=== PATIENT | female | born 1945 | race Caucasian/White ===

== ENCOUNTER 2022-07-05 17:43 | Emergency (ER) | payer MEDICARE, OTHER ==
[~2022-07-05] VITALS: Ht 175 cm; Wt 88.0 kg
--- NOTE | 2022-07-05 17:53 | ED Chest Pain ---
General Stated Complaint: CHEST/BACK PAIN History of Present Illness Date Seen by Provider: Jul 05, 2022 Time Seen by Provider: 17:48 Initial Comments 76-year-old female presents with left lower rib/back pain has been going on for about 3 days. When you press on it it radiates around to the front. Patient reports she was Stretching her back against the wall when the pain started. She denies any fevers chills, nausea vomiting or shortness of breath. Patient was just concerned because the pain came around other chest and wanted to be evaluated. Allergies and Home Medications Patient Home Medication List Home Medication List Reviewed: Yes Review of Systems Review of Systems Constitutional: No chills, No fever Respiratory: See HPI; Denies Cough, Denies Shortness of Air Cardiovascular: No Symptoms Reported Gastrointestinal: No Symptoms Reported Genitourinary: No Symptoms Reported Musculoskeletal: see HPI Skin: no symptoms reported Psychiatric/Neurological: No Symptoms Reported Endocrine: No Symptoms Reported Physical Exam Vital Signs Vital Signs - First Documented 07/05/22 17:50 Temp 36.8 Pulse 87 Resp 16 B/P (MAP) 163/71 (101) Pulse Ox 97 O2 Delivery Room Air Capillary Refill : Height, Weight, BMI Height: '" Weight: lbs. oz. kg; BMI Method: General Appearance: No Apparent Distress, WD/WN Respiratory: Lungs Clear, Other (Mild tenderness lateral chest wall along lower ribs on left) Cardiovascular: Regular Rate, Rhythm, No Edema Extremity: Normal Capillary Refill, Normal Inspection, Normal Range of Motion Neurologic/Psychiatric: Alert, Oriented x3 Skin: Normal Color, Warm/Dry Progress/Results/Core Measures Results/Orders Lab Results Laboratory Tests Test 07/05/22 17:48 Range/Units White Blood Count 9.9 4.3-11.0 10^3/uL Red Blood Count 4.57 3.80-5.11 10^6/uL Hemoglobin 13.1 11.5-16.0 g/dL Hematocrit 41 35-52 % Mean Corpuscular Volume 89 80-99 fL Mean Corpuscular Hemoglobin 29 25-34 pg Mean Corpuscular Hemoglobin Concent 32 32-36 g/dL Red Cell Distribution Width 13.3 10.0-14.5 % Platelet Count 236 130-400 10^3/uL Mean Platelet Volume 10.2 9.0-12.2 fL Immature Granulocyte % (Auto) 0 % Neutrophils (%) (Auto) 73 42-75 % Lymphocytes (%) (Auto) 18 12-44 % Monocytes (%) (Auto) 7 0-12 % Eosinophils (%) (Auto) 2 0-10 % Basophils (%) (Auto) 0 0-10 % Neutrophils # (Auto) 7.2 1.8-7.8 10^3/uL Lymphocytes # (Auto) 1.8 1.0-4.0 10^3/uL Monocytes # (Auto) 0.7 0.0-1.0 10^3/uL Eosinophils # (Auto) 0.2 0.0-0.3 10^3/uL Basophils # (Auto) 0.0 0.0-0.1 10^3/uL Immature Granulocyte # (Auto) 0.0 0.0-0.1 10^3/uL Sodium Level 140 135-145 MMOL/L Potassium Level 3.9 3.6-5.0 MMOL/L Chloride Level 102 98-107 MMOL/L Carbon Dioxide Level 27 21-32 MMOL/L Anion Gap 11 5-14 MMOL/L Blood Urea Nitrogen 12 7-18 MG/DL Creatinine 0.64 0.60-1.30 MG/DL Estimat Glomerular Filtration Rate 93 BUN/Creatinine Ratio 19 Glucose Level 111 H 70-105 MG/DL Calcium Level 10.0 8.5-10.1 MG/DL Corrected Calcium 9.8 8.5-10.1 MG/DL Magnesium Level 2.1 1.6-2.4 MG/DL Total Bilirubin 0.4 0.1-1.0 MG/DL Aspartate Amino Transf (AST/SGOT) 18 5-34 U/L Alanine Aminotransferase (ALT/SGPT) 12 0-55 U/L Alkaline Phosphatase 191 H 40-136 U/L Troponin I < 0.30 <0.30 NG/ML Total Protein 7.4 6.4-8.2 GM/DL Albumin 4.3 3.2-4.5 GM/DL My Orders Orders - NATALIE RANGELVOR L DO Cbc With Automated Diff (07/05/22 17:54) Comprehensive Metabolic Panel (07/05/22 17:54) Magnesium (07/05/22 17:54) Troponin I Fs (07/05/22 17:54) Ekg Tracing (07/05/22 17:54) Monitor-Rhythm Ecg Trace Only (07/05/22 17:54) Ribs/Unilateral With Chest (07/05/22 17:54) Vital Signs/I&O 07/05/22 07/05/22 17:50 18:32 Temp 36.8 36.8 Pulse 87 79 Resp 16 16 B/P (MAP) 163/71 (101) 147/68 Pulse Ox 97 96 O2 Delivery Room Air Room Air Progress Progress Note : Progress Note Patient is EKG and labs show no acute findings. Patient has old rib fractures but no acute rib fractures. Patient likely does have a contusion from leaning up against the wall. Her son reports that she falls frequently due to neuropathy and will not always admit to it. Patient's physical exam shows no acute findings. She can use topical lidocaine Tylenol ibuprofen. She is stable and discharged Initial ECG Impression Date: Jul 05, 2022 Initial ECG Impression Time: 17:50 Initial ECG Rate: 89 Initial ECG Rhythm: Normal Sinus Initial ECG Intervals: LA (210) Comment NSR, first degree block, RBBB Diagnostic Imaging Diagonstic Imaging: Xray Plain Films/CT/US/NM/MRI: chest Comments Date of Exam:07/05/22 RIBS/UNILATERAL WITH CHEST INDICATION: Left rib pain EXAMINATION: Left rib series with chest 07/05/2022. FINDINGS: 4 views of the chest and left ribs. Right hemidiaphragm appears elevated. There are no infiltrates or effusions. No pneumothorax. Scoliotic deformity of the spine is noted. There are old left posterior lateral rib fractures along the 3rd and 4th ribs. No displaced acute fractures identified. IMPRESSION: 1. Chronic findings. No acute process appreciated. Reviewed: Reviewed by Me, Reviewed/Discussed Departure Impression Primary Impression: Contusion of rib on left side Qualified Codes: S20.212A - Contusion of left front wall of thorax, initial encounter Disposition: HOME, SELF-CARE Condition: Stable Departure-Patient Inst. Referrals: NO,LOCAL PHYSICIAN (PCP/Family) Primary Care Physician Patient Instructions: Bruised Rib (DC) Add. Discharge Instructions: 4% topical lidocaine with menthol cream or gel use as directed on package, Tylenol ibuprofen as needed, warm moist heat. Follow-up with your primary care provider if symptoms or not improving over the next week. MADDISON RANGEL DO Jul 05, 2022 17:53
[2022-07-05 18:02] LABS: BASOPHILS % (AUTO) 0 % (0-10); EOSINOPHILS # (AUTO) 0.2 10^3/uL (0.0-0.3); EOSINOPHILS % (AUTO) 2 % (0-10); HEMATOCRIT 41 % (35-52); HEMOGLOBIN 13.1 g/dL (11.5-16.0); LYMPHOCYTES # (AUTO) 1.8 10^3/uL (1.0-4.0); LYMPHOCYTES % (AUTO) 18 % (12-44); MEAN CORPUSCULAR HEMOGLOBIN 29 pg (25-34); MEAN CORPUSCULAR HGB CONC 32 g/dL (32-36); MEAN CORPUSCULAR VOLUME 89 fL (80-99); MEAN PLATELET VOLUME 10.2 fL (9.0-12.2); MONOCYTES # (AUTO) 0.7 10^3/uL (0.0-1.0); MONOCYTES % (AUTO) 7 % (0-12); NEUTROPHILS # (AUTO) 7.2 10^3/uL (1.8-7.8); NEUTROPHILS % (AUTO) 73 % (42-75); PLATELET COUNT 236 10^3/uL (130-400); WHITE BLOOD COUNT 9.9 10^3/uL (4.3-11.0)
[2022-07-05 18:22] LABS: ALANINE AMINOTRANSFERASE 12 U/L (0-55); ALBUMIN 4.3 GM/DL (3.2-4.5); ALKALINE PHOSPHATASE 191 U/L (40-136); BILIRUBIN,TOTAL 0.4 MG/DL (0.1-1.0); BUN/CREATININE RATIO 19; CARBON DIOXIDE 27 MMOL/L (21-32); CHLORIDE 102 MMOL/L (98-107); CREATININE SERUM 0.64 MG/DL (0.60-1.30); GFR ESTIMATED 93; GLUCOSE 111 MG/DL (70-105); MAGNESIUM 2.1 MG/DL (1.6-2.4); POTASSIUM 3.9 MMOL/L (3.6-5.0); SODIUM 140 MMOL/L (135-145); TOTAL PROTEIN 7.4 GM/DL (6.4-8.2)
[2022-07-05 18:32] VITALS: BP 147/68
--- NOTE | 2022-07-05 18:33 | Diagnostic Imaging Report ---
INDICATION: Left rib pain EXAMINATION: Left rib series with chest 07/05/2022. FINDINGS: 4 views of the chest and left ribs. Right hemidiaphragm appears elevated. There are no infiltrates or effusions. No pneumothorax. Scoliotic deformity of the spine is noted. There are old left posterior lateral rib fractures along the 3rd and 4th ribs. No displaced acute fractures identified. IMPRESSION: 1. Chronic findings. No acute process appreciated. Dictated by: Dictated on workstation # [id number]
== END 2022-07-05 18:48 | disposition home or self-care (01) ==
LOC: ER FS 17:45
DX: S20.212A Contusion of left front wall of thorax, initial encounter (principal); X50.1XXA Overexertion from prolonged static or awkward postures, initial encounter
CPT/HCPCS: 36415; 71101; 80053; 83735; 84484; 85025; 93005; 93041